=== PATIENT | female | born 1955 | race Caucasian/White ===

== ENCOUNTER 2022-06-05 12:49 | Day surgery (SDC) | payer OTHER, BC ==
[2022-05-28 18:05] VITALS: BMI 33.5
[~2022-06-05 12:49] MED LIST: ACETAMINOPHEN 325 MG TABLET (FP) PO PRN; ACETAMINOPHEN INJECTION 100 ML IVPB ONE; BUPIVACAINE HCL/PF 0.5% (5 MG/ML) 30 ML VIAL IJ ONE; CEFAZOLIN 2 GM in DEXTROSE 5%-WATER - 50 ML IVPB ONE; DEXAMETHASONE SOD PHOSPHATE 4 MG/1 ML VIAL ONE; DEXAMETHASONE SOD PHOSPHATE/PF 10 MG/ML SDV ONE; KETOROLAC TROMETHAMINE 30 MG/1 ML VIAL ONE; LACTATED RINGERS SOLUTION 1,000 ML IV SCH; MAG HYDROX/AL HYDROX/SIMETH 30 ML UNIT-DOSE CUP PO PRN; MAGNESIUM HYDROX 2400MG/30ML ORAL SUSPENSION 30 ML CUP PO PRN; MIDAZOLAM HCL 2 MG/2 ML SINGLE DOSE VIAL ONE; ONDANSETRON 4 MG/2 ML VIAL IVPUSH PRN; ONDANSETRON 4 MG/2 ML VIAL ONE; PROPOFOL 20 ML ONE; PROPOFOL 60 ML ONE; TRANEXAMIC ACID 1000 MG/10 ML VIAL IVPUSH ONE; TRANEXAMIC ACID 1000 MG/10 ML VIAL ONE; ceFAZolin SODIUM 1 GM VIAL ONE
[2022-06-05] MEDS ORDERED: SODIUM CHLORIDE 1,000 ML IV SCH (13:00)
[2022-06-05] MEDS: CEFAZOLIN 1 GM in DEXTROSE 5%-WATER - 50 ML IVPB SCH (17:27)
[2022-06-05] MEDS: ACETAMINOPHEN 500 MG TABLET (FP) PO SCH (17:27)
[2022-06-05] MEDS: INSULIN SLIDING SCALE (NOVOLOG) 1 VIAL SQ SCH ×2 (17:37→22:12)
[2022-06-05] MEDS: oxyCODONE HCL 5 MG TABLET PO PRN ×2 (18:21→22:30)
[2022-06-05 18:58] VITALS: RESP 18
[2022-06-05] MEDS: SENNOSIDES/DOCUSATE COMBO (SENNA PLUS) TABLET (UD) PO SCH (21:16)
[2022-06-05] MEDS: ASPIRIN 81 MG CHEWABLE TABLETS PO SCH (21:16)
[2022-06-06] MEDS: ACETAMINOPHEN 500 MG TABLET (FP) PO SCH ×2 (02:00→14:48)
[2022-06-06] MEDS: oxyCODONE HCL 5 MG TABLET PO PRN (02:30)
[2022-06-06] MEDS: CEFAZOLIN 1 GM in DEXTROSE 5%-WATER - 50 ML IVPB SCH (02:42)
[2022-06-06] MEDS ORDERED: oxyCODONE HCL 5 MG TABLET PO PRN (04:30)
[2022-06-06] MEDS ORDERED: oxyCODONE HCL 5 MG TABLET ONE (05:33)
[2022-06-06] MEDS: INSULIN SLIDING SCALE (NOVOLOG) 1 VIAL SQ SCH ×2 (07:05→13:28)
[2022-06-06 08:31] LABS: HEMATOCRIT 38.7 % (32.4-45.2); HEMOGLOBIN 12.6 G/dL (10.7-15.3); MCH 26.6 pg (25.7-33.7); MCHC 32.7 g/dl (32.0-36.0); MEAN CELL VOLUME 81.2 fl (80-96); PLATELET COUNT 219.8 10^3/uL (134-434); RBC 4.76 10^6/uL (3.60-5.2); RDW 15.5 % (11.6-15.6); WHITE BLOOD COUNT 11.8 10^3/uL (4.0-10.8)
[2022-06-06 08:35] LABS: CALCIUM 8.8 mg/dl (8.5-10); CREATININE 0.7 mg/dl (0.55-1.3)
[2022-06-06 09:08] VITALS: BP 122/38; PULSE 80; TEMP 98.3
[2022-06-06] MEDS ORDERED: CELECOXIB 200 MG CAPSULE PO SCH (10:00)
[2022-06-06] MEDS ORDERED: LOSARTAN POTASSIUM 50 MG TABLET PO SCH (10:00)
[2022-06-06] MEDS ORDERED: PANTOPRAZOLE 40 MG TABLET PO SCH (10:00)
[2022-06-06] MEDS ORDERED: DEXAMETHASONE SOD PHOSPHATE 4 MG/1 ML VIAL IVPUSH ONE (10:00)
[2022-06-06] MEDS ORDERED: metFORMIN HCL 500 MG TABLET (FP) PO SCH (10:05)
[2022-06-06] MEDS: SENNOSIDES/DOCUSATE COMBO (SENNA PLUS) TABLET (UD) PO SCH (10:40)
[2022-06-06] MEDS: ASPIRIN 81 MG CHEWABLE TABLETS PO SCH (10:40)
[2022-06-06] MEDS ORDERED: DEXAMETHASONE SOD PHOSPHATE 10 MG/1 ML VIAL ONE (11:10)
== END 2022-06-06 15:06 | disposition home or self-care (01) ==
LOC: FASUSAT 12:49 → FM/S 13:50 → FASUSAT 06-06 15:06
PROVIDERS: ATTEND Orthopaedic Surgery
PROC: 0SRD0J9 Replacement of Left Knee Joint with Synthetic Substitute, Cemented, Open Approach (ICD-10-PCS; principal; 2022-06-05 10:36)
DX: M17.12 Unilateral primary osteoarthritis, left knee (principal)
CPT/HCPCS: 27447; C1776; 36415; 73560-TC-LT-FY; 80048; 82962; 85027; 94760; 97010-GP; 97116-GP; 97162-GP; C1889; J1100

== ENCOUNTER 2022-08-14 06:07 | Day surgery (SDC) | payer OTHER, BC ==
[2022-08-02 13:49] VITALS: BMI 33.5
[2022-08-14] MEDS ORDERED: PROPOFOL 60 ML ONE (07:14)
[2022-08-14] MEDS ORDERED: ACETAMINOPHEN 1000 MG/100 ML BAG IVPB ONE (07:50)
[2022-08-14] MEDS ORDERED: oxyCODONE HCL 5 MG TABLET PO PRN (07:51)
[2022-08-14 08:27] VITALS: BP 116/65; PULSE 84; RESP 18; TEMP 97
== END 2022-08-14 08:54 | disposition home or self-care (01) ==
LOC: FASU 06:07
PROVIDERS: ATTEND Orthopaedic Surgery
PROC: 0SSDXZZ Reposition Left Knee Joint, External Approach (ICD-10-PCS; principal; 2022-08-14 07:31)
DX: M24.662 Ankylosis, left knee (principal); M25.662 Stiffness of left knee, not elsewhere classified
CPT/HCPCS: 82962; 94760

== ENCOUNTER 2023-09-24 13:05 | Day surgery (SDC) | payer OTHER, BC ==
[2023-09-15 15:42] VITALS: BMI 32.8
[~2023-09-24 13:05] MED LIST changes: -ACETAMINOPHEN 325 MG TABLET (FP) PO PRN; -ACETAMINOPHEN INJECTION 100 ML IVPB ONE; -BUPIVACAINE HCL/PF 0.5% (5 MG/ML) 30 ML VIAL IJ ONE; +BUPIVACAINE HCL/PF 0.5% (5MG/ML) 10 ML VIAL ONE; +BUPIVACAINE LIPOSOME/PF (EXPAREL) 266 MG/20 ML VIAL ONE; -CEFAZOLIN 2 GM in DEXTROSE 5%-WATER - 50 ML IVPB ONE; -DEXAMETHASONE SOD PHOSPHATE/PF 10 MG/ML SDV ONE; -KETOROLAC TROMETHAMINE 30 MG/1 ML VIAL ONE; -LACTATED RINGERS SOLUTION 1,000 ML IV SCH; -PROPOFOL 20 ML ONE; +PROPOFOL 40 ML ONE; -PROPOFOL 60 ML ONE; -TRANEXAMIC ACID 1000 MG/10 ML VIAL IVPUSH ONE
[2023-09-24] MEDS ORDERED: oxyCODONE HCL 5 MG TABLET PO PRN ×2 (13:11)
[2023-09-24] MEDS ORDERED: MAGNESIUM HYDROX 2400MG/30ML ORAL SUSPENSION 30 ML CUP PO PRN ×2 (13:15→13:21)
[2023-09-24] MEDS ORDERED: MAG HYDROX/AL HYDROX/SIMETH 30 ML UNIT-DOSE CUP PO PRN ×2 (13:15→13:21)
[2023-09-24] MEDS ORDERED: ONDANSETRON 4 MG/2 ML VIAL IVPUSH PRN ×2 (13:15→13:21)
[2023-09-24] MEDS: ACETAMINOPHEN 1000 MG/100 ML BAG IVPB SCH ×3 (13:21→15:20)
[2023-09-24] MEDS ORDERED: FENTANYL CITRATE/PF 50 MCG/ML VIAL ONE (13:38)
[2023-09-24] MEDS: oxyCODONE HCL 5 MG TABLET PO PRN ×2 (14:06→18:16)
[2023-09-24] MEDS ORDERED: oxyCODONE HCL 5 MG TABLET ONE (14:08)
[2023-09-24] MEDS: SODIUM CHLORIDE 1,000 ML IV SCH ×3 (15:19→15:20)
[2023-09-24] MEDS ORDERED: INSULIN ASPART SLIDING SCALE (NOVOLOG) 1 VIAL SQ SCH ×2 (16:30)
[2023-09-24] MEDS: INSULIN ASPART SLIDING SCALE (NOVOLOG) 1 VIAL SQ SCH (16:56)
[2023-09-24] MEDS: CEFAZOLIN 1 GM in DEXTROSE 5%-WATER - 50 ML IVPB SCH (18:17)
[2023-09-24] MEDS ORDERED: CEFAZOLIN 1 GM in DEXTROSE 5%-WATER - 50 ML IVPB SCH (19:00)
[2023-09-24] MEDS: CELECOXIB 100 MG CAPSULE PO SCH (21:41)
[2023-09-24] MEDS: SENNOSIDES/DOCUSATE COMBO (SENNA PLUS) TABLET (UD) PO SCH (21:41)
[2023-09-24] MEDS: ASPIRIN 81 MG CHEWABLE TABLETS PO SCH (21:41)
[2023-09-24] MEDS: FAMOTIDINE 20 MG TABLET PO SCH (21:42)
[2023-09-24] MEDS: TRANEXAMIC ACID - 1,000 MG in SODIUM CHLORIDE 50 ML IVPB SCH (21:42)
[2023-09-24] MEDS: DEXAMETHASONE 4 MG TABLET (FP) PO SCH (21:42)
[2023-09-24] MEDS ORDERED: TRANEXAMIC ACID 1000 MG/10 ML VIAL IVPUSH SCH ×3 (22:00)
[2023-09-24] MEDS ORDERED: FAMOTIDINE 20 MG TABLET PO SCH ×2 (22:00)
[2023-09-24] MEDS ORDERED: SENNOSIDES/DOCUSATE COMBO (SENNA PLUS) TABLET (UD) PO SCH ×2 (22:00)
[2023-09-24] MEDS ORDERED: DEXAMETHASONE 4 MG TABLET (FP) PO SCH ×2 (22:00)
[2023-09-24] MEDS ORDERED: ASPIRIN 81 MG CHEWABLE TABLETS PO SCH ×2 (22:00)
[2023-09-24] MEDS ORDERED: CELECOXIB 100 MG CAPSULE PO SCH ×2 (22:00)
[2023-09-25] MEDS: ACETAMINOPHEN 500 MG TABLET (FP) PO SCH (07:25)
[2023-09-25] MEDS ORDERED: ACETAMINOPHEN 500 MG TABLET (FP) PO SCH ×2 (08:00)
[2023-09-25] MEDS: LOSARTAN POTASSIUM 50 MG TABLET PO SCH (09:05)
[2023-09-25] MEDS: MULTIVITAMINS (DAILY MVI) TABLET (FP) PO SCH (09:05)
[2023-09-25] MEDS ORDERED: MULTIVITAMINS (DAILY MVI) TABLET (FP) PO SCH ×2 (10:00)
[2023-09-25] MEDS ORDERED: LOSARTAN POTASSIUM 50 MG TABLET PO SCH ×2 (10:00)
[2023-09-25 11:18] VITALS: RESP 16
[2023-09-25 14:24] VITALS: BP 116/56; PULSE 64; TEMP 97.6
== END 2023-09-25 17:07 | disposition home or self-care (01) ==
LOC: FASUSAT 13:05 → FM/S 13:15 → UNDOADMIN 13:15 → FM/S 14:29 → FASUSAT 09-25 17:07
PROVIDERS: ATTEND Orthopaedic Surgery
PROC: 0SRC0J9 Replacement of Right Knee Joint with Synthetic Substitute, Cemented, Open Approach (ICD-10-PCS; principal; 2023-09-24 11:12)
DX: M17.11 Unilateral primary osteoarthritis, right knee (principal)
CPT/HCPCS: 27447; C1776; 73560-TC-RT-FY; 82962; 94760; 97010-GP; 97116-GP; 97162-GP; C1889; J0131